=== PATIENT | male | born 1965 | race Caucasian/White ===

== ENCOUNTER 2019-07-29 17:43 | Inpatient (IN) | payer BC, OTHER ==
[~2019-07-29] VITALS: Ht 188 cm; Wt 104.4 kg
[~2019-07-29 17:43] MED LIST: ASPI81TA52 PO; ATOR40TA PO; NITR0.4T48 SL
[2019-07-29] MEDS ORDERED: metroNIDAZOLE-Flagyl 500mg/NS 100 ML IV STA (17:46)
[2019-07-29] MEDS ORDERED: ondansetron/PF 4mg/2ml inj IV ONE (17:50)
[2019-07-29] MEDS ORDERED: normal saline 1000ML IV soln IVB ONE (17:50)
[2019-07-29] MEDS: morphine 4 MG/ML inj SYRINge IV PRN ×3 (17:58→22:19)
[2019-07-29] MEDS: diatr meglu/diatrizoate 30ml oral sol.-(3 dose) bottle PO SCH (17:58)
[2019-07-29] MEDS ORDERED: IBUP-1986 PO (18:04)
[2019-07-29] MEDS ORDERED: TEST200V IJ (18:04)
[2019-07-29] MEDS ORDERED: fentaNYL/PF 50MCG/1 ML 2ML syringe ONE (18:09)
[2019-07-29 18:17] LABS: BASOPHILS % (AUTO) 0.3 % (0-1); EOSINOPHILS # (AUTO) 0.2 X10'3 (0-0.9); EOSINOPHILS % (AUTO) 1.3 % (0-6); HEMATOCRIT 51.2 % (42.0-52.0); HEMOGLOBIN 16.9 g/dl (14.0-17.9); LYMPHOCYTES # (AUTO) 0.8 X10'3 (1.1-4.8); LYMPHOCYTES % (AUTO) 5.4 % (21-51); MEAN CORPUSCULAR HEMOGLOBIN 32.8 PG (27.0-31.0); MEAN CORPUSCULAR HGB CONC 33.1 g/dL (33.0-36.5); MEAN CORPUSCULAR VOLUME 99.2 FL (78-98); MEAN PLATELET VOLUME 7.8 FL (7.4-10.4); MONOCYTES # (AUTO) 1.3 X10'3 (0-0.9); MONOCYTES % (AUTO) 9.2 % (2-12); NEUTROPHILS # (AUTO) 11.8 X10'3 (1.8-7.7); NEUTROPHILS % (AUTO) 83.8 % (42-75); PLATELET COUNT 202 X10'3 (140-440); RED BLOOD COUNT 5.16 X10'6 (4.70-6.10); RED CELL DISTRIBUTION WIDTH 14.1 % (11.5-14.5); WHITE BLOOD COUNT 14.1 X10'3 (4.5-11.0)
[2019-07-29 18:35] LABS: ALANINE AMINOTRANSFERASE 22 U/L (12-78); ALBUMIN 2.7 G/DL (3.4-5.0); ALKALINE PHOSPHATASE 49 IU/L (46-116); ANION GAP 3 (8-16); ASPARTATE AMINO TRANSFERASE 11 U/L (10-37); BILIRUBIN,TOTAL 0.4 MG/DL (0.1-1.0); BLOOD UREA NITROGEN 10 MG/DL (7-18); BUN/CREATININE RATIO 6.6 (5.4-32.0); CALCIUM 7.5 MG/DL (8.5-10.1); CHLORIDE 111 MMOL/L (99-107); CREATININE 1.52 MG/DL (0.60-1.10); GLUCOSE 168 MG/DL (70-104); POTASSIUM 3.6 MMOL/L (3.5-5.1); SODIUM 142 MMOL/L (135-145); TOTAL CARBON DIOXIDE 28.2 MMOL/L (24-32); TOTAL PROTEIN 5.3 G/DL (6.4-8.2); eGFR 48 ML/MIN
[2019-07-29 18:39] LABS: LIPASE 82 U/L (73-393); TROPONIN I < 0.04 NG/ML (0.0-0.05)
[2019-07-29 19:08] LABS: CLARITY,URINE CLEAR (Clear); COLOR,URINE YELLOW (Yellow); GLUCOSE, URINE NEGATIVE (Neg); KETONES,URINE NEGATIVE (Neg); LEUKOCYTE ESTERASE ,URINE NEGATIVE (Neg); NITRITES, URINE NEGATIVE (Neg); OCCULT BLOOD,URINE NEGATIVE (Neg); PH,URINE 5.5 (4.8-8.0); PROTEIN,URINE TRACE mg/dl (Neg); UROBILINOGEN,URINE 0.2 E.U/dL (0.2-1.0)
[2019-07-29 19:09] LABS: UA COLLECTION TYPE CLN CATCH MIDSTREAM
[2019-07-29 19:14] LABS: RBC,URINE 0-2 /HPF (0-2); WBC,URINE 0-4 /HPF (0-4)
[2019-07-29 19:15] LABS: BACTERIA,URINE NONE SEEN /HPF (Neg); SQUAMOUS EPITHELIAL CELL,UR FEW /LPF (FEW)
[2019-07-29] MEDS: ciprofloxacin lact 400MG/200ML 200 ML IV SCH (19:43)
[2019-07-29] MEDS: normal saline 1000ml 1,000 ML IV SCH (20:28)
[2019-07-29] MEDS ORDERED: magnesium Cl slow-release 64mg tablet PO PRN (20:30)
[2019-07-29] MEDS ORDERED: potassium Cl 20 mEq SR tablet PO PRN ×2 (20:30)
[2019-07-29] MEDS ORDERED: magnesium 2GM in 50ml NS 50 ML IV PRN (20:30)
[2019-07-29] MEDS ORDERED: magnesium 4gm in 100ml NS 100 ML IV PRN (20:30)
[2019-07-29] MEDS ORDERED: ondansetron/PF 4mg/2ml inj IV PRN (20:30)
[2019-07-29] MEDS ORDERED: potassium CL 10mEq/100ml bag 100 ML IV PRN (20:30)
--- NOTE | 2019-07-29 22:45 | NUR ---
Received report from Jimena Rae RN. patient to follow shortly.
[2019-07-29 22:50] VITALS: BP 163/88
--- NOTE | 2019-07-29 22:50 | NUR ---
Patient arrived to floor via gurney. Pt. A&Ox4, able to ambulate to bed. Nasal swab collected and 2 RN skin check completed. Pt. in no distress at this time.
[2019-07-30] MEDS: morphine 2 MG/ML inj. syringe IV PRN ×2 (01:53→05:36)
[2019-07-30] MEDS: ondansetron/PF 4mg/2ml inj IV PRN ×2 (03:02→07:54)
[2019-07-30] MEDS ORDERED: morphine 2 MG/ML inj. syringe IV ONE (04:15)
[2019-07-30 06:00] VITALS: BP 149/74
[2019-07-30 06:18] LABS: BASOPHILS # (AUTO) 0.1 X10'3 (0-0.2); BASOPHILS % (AUTO) 0.4 % (0-1); EOSINOPHILS # (AUTO) 0.1 X10'3 (0-0.9); HEMATOCRIT 50.3 % (42.0-52.0); HEMOGLOBIN 16.8 g/dl (14.0-17.9); LYMPHOCYTES # (AUTO) 0.6 X10'3 (1.1-4.8); LYMPHOCYTES % (AUTO) 5.5 % (21-51); MEAN CORPUSCULAR HEMOGLOBIN 32.6 PG (27.0-31.0); MEAN CORPUSCULAR HGB CONC 33.4 g/dL (33.0-36.5); MEAN CORPUSCULAR VOLUME 97.7 FL (78-98); MEAN PLATELET VOLUME 7.8 FL (7.4-10.4); MONOCYTES # (AUTO) 1.1 X10'3 (0-0.9); MONOCYTES % (AUTO) 9.6 % (2-12); NEUTROPHILS # (AUTO) 9.7 X10'3 (1.8-7.7); NEUTROPHILS % (AUTO) 83.5 % (42-75); PLATELET COUNT 202 X10'3 (140-440); RED BLOOD COUNT 5.15 X10'6 (4.70-6.10); RED CELL DISTRIBUTION WIDTH 13.7 % (11.5-14.5); WHITE BLOOD COUNT 11.6 X10'3 (4.5-11.0)
[2019-07-30 06:24] LABS: ALBUMIN 2.9 G/DL (3.4-5.0); ANION GAP 9 (8-16); BLOOD UREA NITROGEN 11 MG/DL (7-18); BUN/CREATININE RATIO 7.5 (5.4-32.0); CALCIUM 7.9 MG/DL (8.5-10.1); CHLORIDE 109 MMOL/L (99-107); CREATININE 1.46 MG/DL (0.60-1.10); GLUCOSE 130 MG/DL (70-104); MAGNESIUM 1.6 MG/DL (1.5-2.4); POTASSIUM 3.8 MMOL/L (3.5-5.1); SODIUM 142 MMOL/L (135-145); eGFR 50 ML/MIN
[2019-07-30] MEDS: normal saline 1000ml 1,000 ML IV SCH ×3 (06:28→22:43)
--- NOTE | 2019-07-30 06:45 | NUR ---
Problems reprioritized. Patient report given, questions answered & plan of care reviewed with Meagan LEACH.
--- NOTE | 2019-07-30 06:49 | NUR ---
Patient in room ORTHO 4013. I have received report from HAYLEE Doe and had the opportunity to ask questions and assume patient care.
[2019-07-30] MEDS: ciprofloxacin lact 400MG/200ML 200 ML IV SCH ×2 (07:54→20:42)
[2019-07-30] MEDS: diatr meglu/diatrizoate 30ml oral sol.-(3 dose) bottle PO SCH ×2 (07:54→10:42)
[2019-07-30] MEDS ORDERED: piperacillin/tazo 3.375gm/50ml 50 ML IV SCH (08:00)
[2019-07-30] MEDS: K and/or MAG REPLACEMENT MC SCH ×2 (08:00→20:00)
[2019-07-30 10:00] VITALS: BP 162/92
[2019-07-30] MEDS: HYDROmorphone 1 mg/ml syringe IV PRN ×2 (10:11→14:02)
[2019-07-30] MEDS: metroNIDAZOLE-Flagyl 500mg/NS 100 ML IV SCH ×2 (10:24→16:24)
[2019-07-30] MEDS ORDERED: iohexol 300mg/ml 100ml inj. ONE (10:33)
--- NOTE | 2019-07-30 10:45 | NUR ---
PT TRANSPORTED TO CT VIA WHEELCHAIR
--- NOTE | 2019-07-30 11:04 | NUR ---
PT RETURNED FROM CT.
[2019-07-30 18:00] VITALS: BP 144/67
--- NOTE | 2019-07-30 18:27 | NUR ---
Problems reprioritized. Patient report given, questions answered & plan of care reviewed with HAYLEE Correa.
--- NOTE | 2019-07-30 18:30 | NUR ---
notified that pt has HR in 160's. tele reports ST. pt was laying in bed, felt his heart racing, but no chest pain or SOB. "It has happened before. not often." ST lasted for approx 2 minutes.
--- NOTE | 2019-07-30 20:00 | NUR ---
Dr. Gamboa saw patient. ok for CL diet for trial (reds ok) if pt has severe pain again - stop eating and call [facility]. states that pt has some spiral-twists in bowel that will hopefully clear itself. diet is ordered
--- NOTE | 2019-07-30 21:02 | NUR ---
paged Dr. Sanchez. lee [phone]. pt [facility] given ok from [facility] for CL trial diet. wants Excedrin for neck ache. it's what he takes at home. doesn't want dilaudid that is ordered.
[2019-07-30 22:00] VITALS: BP 124/67
[2019-07-30] MEDS ORDERED: aspirin/acetaminophen/caffeine tablet PO ONE (22:10)
[2019-07-30] MEDS ORDERED: pantoprazole 40 MG vial IV ONE (22:20)
[2019-07-31] VITALS (17 sets, daily range): BP systolic 122–151; BP diastolic 57–87
[2019-07-31] MEDS: metroNIDAZOLE-Flagyl 500mg/NS 100 ML IV SCH ×3 (00:40→19:32)
[2019-07-31] MEDS: HYDROmorphone 1 mg/ml syringe IV PRN (04:39)
--- NOTE | 2019-07-31 04:45 | NUR ---
pt ambulated in hallway. noted increased bloating from CL diet. stopped drinking and pain medication given. encouraged pt to walk more if possible. verbalized understanding.
[2019-07-31 06:07] LABS: BASOPHILS % (AUTO) 0.6 % (0-1); EOSINOPHILS # (AUTO) 0.6 X10'3 (0-0.9); EOSINOPHILS % (AUTO) 7.7 % (0-6); HEMATOCRIT 48.6 % (42.0-52.0); MEAN CORPUSCULAR HEMOGLOBIN 32.8 PG (27.0-31.0); MEAN CORPUSCULAR HGB CONC 32.9 g/dL (33.0-36.5); MEAN CORPUSCULAR VOLUME 99.6 FL (78-98); MEAN PLATELET VOLUME 7.7 FL (7.4-10.4); MONOCYTES % (AUTO) 13.3 % (2-12); NEUTROPHILS # (AUTO) 4.9 X10'3 (1.8-7.7); NEUTROPHILS % (AUTO) 65.4 % (42-75); PLATELET COUNT 186 X10'3 (140-440); RED BLOOD COUNT 4.88 X10'6 (4.70-6.10); RED CELL DISTRIBUTION WIDTH 13.9 % (11.5-14.5); WHITE BLOOD COUNT 7.5 X10'3 (4.5-11.0)
[2019-07-31 06:14] LABS: ALBUMIN 2.7 G/DL (3.4-5.0); ANION GAP 8 (8-16); BLOOD UREA NITROGEN 11 MG/DL (7-18); BUN/CREATININE RATIO 7.7 (5.4-32.0); CALCIUM 7.6 MG/DL (8.5-10.1); CHLORIDE 108 MMOL/L (99-107); CREATININE 1.42 MG/DL (0.60-1.10); GLUCOSE 103 MG/DL (70-104); MAGNESIUM 1.7 MG/DL (1.5-2.4); POTASSIUM 3.4 MMOL/L (3.5-5.1); SODIUM 141 MMOL/L (135-145); TOTAL CARBON DIOXIDE 25.3 MMOL/L (24-32); eGFR 52 ML/MIN
--- NOTE | 2019-07-31 06:39 | NUR ---
Dr. Reese to see pt. order for NPO and abd xray series
--- NOTE | 2019-07-31 06:57 | NUR ---
Patient in room ORTHO 4013. I have received report from Sunny LEACH and had the opportunity to ask questions and assume patient care.
[2019-07-31] MEDS: K and/or MAG REPLACEMENT MC SCH ×2 (08:00→20:00)
[2019-07-31] MEDS: heparin, porcine 5000 units/ml vial SQ SCH ×2 (08:43→21:15)
[2019-07-31] MEDS: pantoprazole 40 MG vial IV SCH (08:43)
[2019-07-31] MEDS: ciprofloxacin lact 400MG/200ML 200 ML IV SCH ×2 (11:17→21:15)
[2019-07-31] MEDS ORDERED: ringers solution, lacted 1,000 ML IV ONE (12:08)
[2019-07-31] MEDS: normal saline 1000ml 1,000 ML IV SCH ×2 (13:01→22:28)
[2019-07-31] MEDS: potassium CL 10mEq/100ml bag 100 ML IV PRN (13:01)
--- NOTE | 2019-07-31 13:52 | NUR ---
Problems reprioritized. Patient report given, questions answered & plan of care reviewed with Ashok in recovery.
[2019-07-31] MEDS ORDERED: ceFAZolin 1000mg inj ONE (14:09)
[2019-07-31] MEDS ORDERED: BUPIVAcaine/PF 2.5 mg/ml (0.25%) 30ml vial ONE (14:09)
[2019-07-31] MEDS ORDERED: fentaNYL/PF 50MCG/1 ML 2ML syringe IV PRN ×2 (14:45)
[2019-07-31] MEDS ORDERED: labetalol 20mg/4ml (5mg/ml) syringe IV PRN (14:45)
[2019-07-31] MEDS ORDERED: ringers solution, lacted 1,000 ML IV SCH (14:45)
[2019-07-31] MEDS ORDERED: morphine 4 MG/ML inj SYRINge IV PRN (14:45)
[2019-07-31] MEDS ORDERED: ondansetron/PF 4mg/2ml inj IV PRN (14:45)
[2019-07-31] MEDS ORDERED: morphine 2 MG/ML inj. syringe IV PRN (14:45)
[2019-07-31] MEDS ORDERED: hydrALAZINE 20mg/ml inj. IV PRN (14:45)
[2019-07-31] MEDS ORDERED: propofol inj 20 ML IV ONE (14:50)
[2019-07-31] MEDS ORDERED: ondansetron/PF 4mg/2ml inj ONE (14:50)
[2019-07-31] MEDS ORDERED: rocuronium 10mg/ml inj IV ONE (14:50)
[2019-07-31] MEDS ORDERED: LIDOcaine 2% (20mg/ml) 5ml vial ONE (14:50)
[2019-07-31] MEDS ORDERED: midazolam 2 mg/2 ml injection ONE (14:51)
[2019-07-31] MEDS ORDERED: fentaNYL/PF 50MCG/1 ML 2ML syringe ONE ×2 (14:51→15:21)
[2019-07-31] MEDS ORDERED: glycopyrrolate 0.2mg/ml inj ONE (14:52)
[2019-07-31] MEDS ORDERED: potassium Cl 2 mEq/ml inj IV ONE (14:52)
[2019-07-31] MEDS ORDERED: labetalol 20mg/4ml (5mg/ml) syringe IV ONE (14:52)
[2019-07-31] MEDS ORDERED: neostigmine methylsulfate 1 MG/ML 10ml vial ONE (14:52)
[2019-07-31] MEDS ORDERED: sevoflurane 250ml liquid IH ONE (14:52)
[2019-07-31] MEDS ORDERED: dexamethasone sod phosphate 4mg/ml inj. ONE (14:58)
[2019-07-31] MEDS ORDERED: ceFOXitin 1000 MG inj ONE ×3 (15:02)
[2019-07-31] MEDS ORDERED: BUPIVAcaine/PF 2.5mg/ml (0.25%) 10ml vial ONE (15:53)
[2019-07-31] MEDS ORDERED: BUPIVACAINE liposomal/PF 13.3 MG/ML vial IM ONE (15:53)
--- NOTE | 2019-07-31 16:28 | NUR ---
Received from OR via ORTHO BED WITH [facility] , accompanied by Anesthesiologist ELPIDIO and report given by Anesthesiolgist. PATIENT DENIES PAIN. 5 ABDOMINAL BANDAIDS PRESENT THAT ARE CDI. 10L MASK ON WITH 99% SATURATIONS. SCDS DONNED UPON ARRIVAL. 20G PIV IN RIGHT UE RUNNING LR AT 100. VSS, DENIES PAIN UPON QUESTIONING. Addendum: 07/31/19 at 1639 by Ashok Kimball RN, RN Amended: Links added.
[2019-07-31] MEDS ORDERED: CADD PCA waste documentation MC PRN (16:55)
[2019-07-31] MEDS ORDERED: naloxone 0.4 mg/ml inj IV PRN (16:55)
--- NOTE | 2019-07-31 17:08 | NUR ---
Report called to receiving nurse. Transferred via ORTHO BED WITH [facility] Belongings . Special Issues communicated to receiving nurse SAIRA LEACH. Addendum: 07/31/19 at 1733 by Ashok Kimball RN, RN Amended: Links added.
--- NOTE | 2019-07-31 17:08 | NUR ---
Report called to receiving nurse. Transferred via ORTHO BED WITH [facility] WITH NO Belongings. Special Issues communicated to receiving nurse SAIRA LEACH. PATIENT WITH NO C.O. PAIN. Addendum: 07/31/19 at 1726 by Ashok Kimball RN, RN Amended: Links added.
[2019-07-31] MEDS: HYDROmorphone/NS 1 mg/ml CADD 50 ML IV SCH ×4 (17:58→23:00)
--- NOTE | 2019-07-31 18:30 | NUR ---
Patient report given to Kitty LEACH
[2019-08-01] MEDS: metroNIDAZOLE-Flagyl 500mg/NS 100 ML IV SCH ×2 (00:15→08:59)
[2019-08-01] MEDS: potassium CL 10mEq/100ml bag 100 ML IV PRN ×3 (00:16→02:50)
[2019-08-01] MEDS: HYDROmorphone/NS 1 mg/ml CADD 50 ML IV SCH ×12 (01:00→23:00)
[2019-08-01 06:00] VITALS: BP 111/64
--- NOTE | 2019-08-01 06:10 | NUR ---
Problems reprioritized. Patient report given, questions answered & plan of care reviewed with Walter LEACH.
--- NOTE | 2019-08-01 06:15 | NUR ---
Patient in room ORTHO 4013. I have received report from HAYLEE Tang and had the opportunity to ask questions and assume patient care.
[2019-08-01 06:16] LABS: BASOPHILS % (AUTO) 0.2 % (0-1); EOSINOPHILS % (AUTO) 0.3 % (0-6); HEMATOCRIT 47.3 % (42.0-52.0); HEMOGLOBIN 15.8 g/dl (14.0-17.9); LYMPHOCYTES # (AUTO) 0.6 X10'3 (1.1-4.8); LYMPHOCYTES % (AUTO) 6.9 % (21-51); MEAN CORPUSCULAR HEMOGLOBIN 32.9 PG (27.0-31.0); MEAN CORPUSCULAR HGB CONC 33.4 g/dL (33.0-36.5); MEAN CORPUSCULAR VOLUME 98.6 FL (78-98); MEAN PLATELET VOLUME 7.7 FL (7.4-10.4); MONOCYTES % (AUTO) 10.8 % (2-12); NEUTROPHILS # (AUTO) 7.3 X10'3 (1.8-7.7); NEUTROPHILS % (AUTO) 81.8 % (42-75); PLATELET COUNT 218 X10'3 (140-440); RED CELL DISTRIBUTION WIDTH 13.7 % (11.5-14.5); WHITE BLOOD COUNT 8.9 X10'3 (4.5-11.0)
[2019-08-01 06:20] LABS: ALBUMIN 2.7 G/DL (3.4-5.0); ANION GAP 7 (8-16); BLOOD UREA NITROGEN 10 MG/DL (7-18); BUN/CREATININE RATIO 6.8 (5.4-32.0); CALCIUM 7.3 MG/DL (8.5-10.1); CHLORIDE 107 MMOL/L (99-107); CREATININE 1.48 MG/DL (0.60-1.10); GLUCOSE 127 MG/DL (70-104); MAGNESIUM 1.7 MG/DL (1.5-2.4); POTASSIUM 3.8 MMOL/L (3.5-5.1); SODIUM 140 MMOL/L (135-145); TOTAL CARBON DIOXIDE 26.4 MMOL/L (24-32); eGFR 49 ML/MIN
[2019-08-01] MEDS: K and/or MAG REPLACEMENT MC SCH ×2 (07:06→20:00)
--- NOTE | 2019-08-01 07:36 | NUR ---
PAGER ID: [phone] MESSAGE: [id number] Mark Anthony Piper: Had two minute run of Vtac (per telemetry nurse). Patient said he felt it but feels normal now. Vitals BP 132/88, P 62, O2 at 98 on RA. HAYLEE Watson Ext [phone]
[2019-08-01] MEDS: pantoprazole 40 MG vial IV SCH (08:36)
[2019-08-01] MEDS: heparin, porcine 5000 units/ml vial SQ SCH ×2 (08:41→19:42)
[2019-08-01] MEDS: ciprofloxacin lact 400MG/200ML 200 ML IV SCH ×2 (08:44→19:43)
[2019-08-01] MEDS: normal saline 1000ml 1,000 ML IV SCH ×2 (08:59→20:52)
[2019-08-01 10:00] VITALS: BP 132/72
[2019-08-01] MEDS: metroNIDAZOLE 500mg tablet PO SCH ×2 (16:08→23:57)
[2019-08-01 18:00] VITALS: BP 142/80
--- NOTE | 2019-08-01 18:20 | NUR ---
Patient in room ORTHO 4013. I have received report from Walter LEACH and had the opportunity to ask questions and assume patient care.
--- NOTE | 2019-08-01 18:26 | NUR ---
Problems reprioritized. Patient report given, questions answered & plan of care reviewed with HAYLEE Blackmon.
[2019-08-01] MEDS: lactobacillus rhamnosus 10,000 MMU CELLS/CAPSULE PO SCH (19:41)
[2019-08-01 22:00] VITALS: BP 136/81
[2019-08-02] MEDS: HYDROmorphone/NS 1 mg/ml CADD 50 ML IV SCH ×7 (01:00→13:00)
[2019-08-02] MEDS: normal saline 1000ml 1,000 ML IV SCH (03:27)
[2019-08-02 06:00] VITALS: BP 142/73
--- NOTE | 2019-08-02 06:00 | NUR ---
Patient in room ORTHO 4013. I have received report from Lorri LEACH and had the opportunity to ask questions and assume patient care.
[2019-08-02 06:01] LABS: ALBUMIN 2.8 G/DL (3.4-5.0); ANION GAP 6 (8-16); BLOOD UREA NITROGEN 9 MG/DL (7-18); BUN/CREATININE RATIO 6.4 (5.4-32.0); CALCIUM 7.7 MG/DL (8.5-10.1); CHLORIDE 109 MMOL/L (99-107); CREATININE 1.41 MG/DL (0.60-1.10); GLUCOSE 99 MG/DL (70-104); MAGNESIUM 1.9 MG/DL (1.5-2.4); POTASSIUM 3.7 MMOL/L (3.5-5.1); SODIUM 141 MMOL/L (135-145); TOTAL CARBON DIOXIDE 25.6 MMOL/L (24-32); eGFR 52 ML/MIN
[2019-08-02 06:07] LABS: BASOPHILS # (AUTO) 0.1 X10'3 (0-0.2); BASOPHILS % (AUTO) 0.6 % (0-1); EOSINOPHILS # (AUTO) 0.4 X10'3 (0-0.9); EOSINOPHILS % (AUTO) 4.6 % (0-6); HEMATOCRIT 46.3 % (42.0-52.0); HEMOGLOBIN 15.5 g/dl (14.0-17.9); LYMPHOCYTES # (AUTO) 0.8 X10'3 (1.1-4.8); MEAN CORPUSCULAR HGB CONC 33.5 g/dL (33.0-36.5); MEAN CORPUSCULAR VOLUME 98.5 FL (78-98); MEAN PLATELET VOLUME 7.8 FL (7.4-10.4); MONOCYTES % (AUTO) 10.5 % (2-12); NEUTROPHILS # (AUTO) 7.4 X10'3 (1.8-7.7); NEUTROPHILS % (AUTO) 76.3 % (42-75); PLATELET COUNT 217 X10'3 (140-440); RED CELL DISTRIBUTION WIDTH 13.5 % (11.5-14.5); WHITE BLOOD COUNT 9.7 X10'3 (4.5-11.0)
--- NOTE | 2019-08-02 06:22 | NUR ---
Problems reprioritized. Patient report given, questions answered & plan of care reviewed with Karmen LEACH.
[2019-08-02] MEDS: metroNIDAZOLE 500mg tablet PO SCH (07:15)
[2019-08-02] MEDS: lactobacillus rhamnosus 10,000 MMU CELLS/CAPSULE PO SCH (07:15)
[2019-08-02] MEDS: heparin, porcine 5000 units/ml vial SQ SCH (07:15)
[2019-08-02] MEDS: ciprofloxacin lact 400MG/200ML 200 ML IV SCH (07:15)
[2019-08-02] MEDS ORDERED: pantoprazole 40mg Tablet.DR PO SCH (07:30)
[2019-08-02] MEDS: K and/or MAG REPLACEMENT MC SCH (08:00)
[2019-08-02 10:00] VITALS: BP 136/77
--- NOTE | 2019-08-02 15:39 | NUR ---
Patient stable for discharge home today. All belongings sent with patient. IV's discontinued and cannula intact.
== END 2019-08-02 15:10 | disposition home or self-care (01) | DRG 337 ==
LOC: ER 17:43 → ED HOLD 20:28 → ORTHO 4S 22:48
PROVIDERS: ADMIT Internal Medicine; ATTEND Family Medicine
PROC: 0DN84ZZ Release Small Intestine, Percutaneous Endoscopic Approach (ICD-10-PCS; principal; 2019-07-31 14:52)
DX: K56.50 Intestinal adhesions [bands], unspecified as to partial versus complete obstruction (principal); I25.10 Atherosclerotic heart disease of native coronary artery without angina pectoris
CPT/HCPCS: 96365; 96366; 96375; 99285; Z7506; Z7508; 36415; 71045; 74022; 74177; 80048; 80053; 81001; 82948; 83605; 83690; 83735; 84484; 85025; 85610; 87081; 93005; A4215; A4314; A4618; A7000; C9113; C9290; G0378; J0690; J0694; J0744; J1100; J1170; J1644; J2001; J2250; J2270; J2405; J2704; J2710; J3010; J3480; J3490; J7030; J7120; Q9963; Q9967

== ENCOUNTER 2019-08-07 00:20 | Inpatient (IN) | payer BC ==
[~2019-08-07] VITALS: Ht 188 cm; Wt 100.0 kg
[~2019-08-07 00:20] MED LIST changes: -ASPI81TA52 PO; -ATOR40TA PO; +IBUP-1986 PO; -NITR0.4T48 SL; +TEST200V IJ
[2019-08-07] MEDS ORDERED: ondansetron/PF 4mg/2ml inj IV ONE (00:25)
[2019-08-07] MEDS ORDERED: normal saline 1000ML IV soln IVB ONE (00:25)
[2019-08-07] MEDS: morphine 4 MG/ML inj SYRINge IV PRN ×3 (00:56→02:11)
[2019-08-07 01:06] LABS: BASOPHILS # (AUTO) 0.1 X10'3 (0-0.2); BASOPHILS % (AUTO) 0.8 % (0-1); EOSINOPHILS # (AUTO) 0.3 X10'3 (0-0.9); EOSINOPHILS % (AUTO) 2.2 % (0-6); HEMATOCRIT 56.9 % (42.0-52.0); LYMPHOCYTES # (AUTO) 1.2 X10'3 (1.1-4.8); LYMPHOCYTES % (AUTO) 8.9 % (21-51); MEAN CORPUSCULAR HEMOGLOBIN 32.6 PG (27.0-31.0); MEAN CORPUSCULAR HGB CONC 33.1 g/dL (33.0-36.5); MEAN CORPUSCULAR VOLUME 98.6 FL (78-98); MONOCYTES # (AUTO) 1.4 X10'3 (0-0.9); MONOCYTES % (AUTO) 10.6 % (2-12); NEUTROPHILS # (AUTO) 10.4 X10'3 (1.8-7.7); NEUTROPHILS % (AUTO) 77.5 % (42-75); PLATELET COUNT 292 X10'3 (140-440); RED BLOOD COUNT 5.77 X10'6 (4.70-6.10); RED CELL DISTRIBUTION WIDTH 14.2 % (11.5-14.5); WHITE BLOOD COUNT 13.5 X10'3 (4.5-11.0)
[2019-08-07 01:10] LABS: HEMOGLOBIN 18.8 g/dl (14.0-17.9)
[2019-08-07 01:17] LABS: CLARITY,URINE CLEAR (Clear); COLOR,URINE YELLOW (Yellow); GLUCOSE, URINE NEGATIVE (Neg); KETONES,URINE NEGATIVE (Neg); LEUKOCYTE ESTERASE ,URINE NEGATIVE (Neg); NITRITES, URINE NEGATIVE (Neg); OCCULT BLOOD,URINE NEGATIVE (Neg); PROTEIN,URINE NEGATIVE (Neg); UROBILINOGEN,URINE 0.2 E.U/dL (0.2-1.0)
[2019-08-07 01:18] LABS: UA COLLECTION TYPE VOIDED
[2019-08-07 01:33] LABS: ALANINE AMINOTRANSFERASE 100 U/L (12-78); ALBUMIN 3.9 G/DL (3.4-5.0); ALBUMIN/GLOBULIN RATIO 1.1 (1.1-1.5); ALKALINE PHOSPHATASE 82 IU/L (46-116); ANION GAP 9 (8-16); ASPARTATE AMINO TRANSFERASE 22 U/L (10-37); BILIRUBIN,TOTAL 0.7 MG/DL (0.1-1.0); BLOOD UREA NITROGEN 15 MG/DL (7-18); BUN/CREATININE RATIO 8.3 (5.4-32.0); CHLORIDE 102 MMOL/L (99-107); CREATININE 1.81 MG/DL (0.60-1.10); GLUCOSE 97 MG/DL (70-104); LIPASE 844 U/L (73-393); POTASSIUM 3.8 MMOL/L (3.5-5.1); SODIUM 140 MMOL/L (135-145); TOTAL CARBON DIOXIDE 28.6 MMOL/L (24-32); TOTAL PROTEIN 7.5 G/DL (6.4-8.2); eGFR 39 ML/MIN
[2019-08-07] MEDS ORDERED: fentaNYL/PF 50MCG/1 ML 2ML syringe IV ONE (01:55)
[2019-08-07] MEDS ORDERED: LIDOcaine 2% 10ml TOPICAL JELLY (Urojet) MM STA (01:59)
[2019-08-07] MEDS ORDERED: LIDOcaine 2% 10ml TOPICAL JELLY (Urojet) MM ONE (02:00)
[2019-08-07] MEDS ORDERED: ondansetron/PF 4mg/2ml inj IV PRN (02:25)
[2019-08-07] MEDS ORDERED: HYDROmorphone inj. 0.5 MG/0.5 ML DISP.SYRIN IV PRN (02:25)
[2019-08-07] MEDS ORDERED: levoFLOXACIN-Levaquin 500mg/D5 100 ML IV ONE (02:30)
[2019-08-07] MEDS: HYDROmorphone 1 mg/ml syringe IV PRN ×2 (03:18→05:52)
[2019-08-07] MEDS: normal saline 1000ml 1,000 ML IV SCH ×4 (03:20→23:22)
[2019-08-07 03:24] VITALS: BP 127/79
--- NOTE | 2019-08-07 06:30 | NUR ---
Patient in room [facility] 360. I have received report from HAYLEE Kidd and had the opportunity to ask questions and assume patient care.
[2019-08-07 07:00] VITALS: BP 114/65
[2019-08-07 11:00] VITALS: BP 121/79
--- NOTE | 2019-08-07 12:39 | NUR ---
Malnutrition consult: Pt reports 2-13 lb wt loss with decreased appetite per malnutrition risk screen with RN. Pt recently admitted with scaled wt of 104.355 kg taken 07/30 with a standing scale, current documented wt is 100 kg however is not scaled. Pt NPO on admit with NG tube in place however diet has just been advanced to clear liquids, pending first meal since advancement. Pt documented with 100% PO intake on liquid diet at last admit 07/31-08/01. Pt with no documented decrease in muscle strength or edema. No noted visible fat or muscle wasting. Per H&P pt reports pain and nausea the day of admit that resulted in vomiting. Pt may have experienced some wt loss however currently lacks a minimum of two criteria for malnutrition. Will continue to follow. Addendum: 08/07/19 at [address] Amended: Links added.
--- NOTE | 2019-08-07 18:07 | NUR ---
Problems reprioritized. Patient report given, questions answered & plan of care reviewed with HAYLEE Lutz.
[2019-08-07 18:30] VITALS: BP 121/69
--- NOTE | 2019-08-07 18:53 | NUR ---
Patient in room [facility] 360. I have received report from HAYLEE Goodwin and had the opportunity to ask questions and assume patient care.
--- NOTE | 2019-08-07 20:00 | NUR ---
Pt states his spouse was treated Rudely in front entrance. She drover over an hour to get here and arrived around 0 visiting hours over at 1900 and she is not allowed to visit. Customer Care Assistant states strictly no visitors after 190, lead burner supervisor called waiting for call back. Spouse did not want to wait any longer so I met spouse in entrance to curing pickling packer pt belongings.
[2019-08-07] MEDS ORDERED: diatr meglu/diatrizoate 30ml oral sol.-(3 dose) bottle PO SCH (21:00)
[2019-08-07] MEDS: diatr meglu/diatrizoate 30ml oral sol.-(3 dose) bottle PO SCH (21:16)
[2019-08-07] MEDS ORDERED: mag hydrox/Alum hydrox/simeth 30ml oral suspension PO ONE (22:20)
[2019-08-08 00:15] VITALS: BP 111/67
[2019-08-08] MEDS: normal saline 1000ml 1,000 ML IV SCH ×2 (04:31→11:42)
[2019-08-08 05:26] LABS: BASOPHILS % (AUTO) 0.7 % (0-1); EOSINOPHILS # (AUTO) 0.3 X10'3 (0-0.9); EOSINOPHILS % (AUTO) 5.8 % (0-6); HEMATOCRIT 47.3 % (42.0-52.0); HEMOGLOBIN 15.9 g/dl (14.0-17.9); LYMPHOCYTES # (AUTO) 1.1 X10'3 (1.1-4.8); LYMPHOCYTES % (AUTO) 19.6 % (21-51); MEAN CORPUSCULAR HGB CONC 33.6 g/dL (33.0-36.5); MEAN CORPUSCULAR VOLUME 98.2 FL (78-98); MEAN PLATELET VOLUME 8.1 FL (7.4-10.4); MONOCYTES # (AUTO) 0.9 X10'3 (0-0.9); MONOCYTES % (AUTO) 16.1 % (2-12); NEUTROPHILS # (AUTO) 3.2 X10'3 (1.8-7.7); NEUTROPHILS % (AUTO) 57.8 % (42-75); PLATELET COUNT 221 X10'3 (140-440); RED BLOOD COUNT 4.82 X10'6 (4.70-6.10); RED CELL DISTRIBUTION WIDTH 13.6 % (11.5-14.5); WHITE BLOOD COUNT 5.6 X10'3 (4.5-11.0)
[2019-08-08 05:38] LABS: ALANINE AMINOTRANSFERASE 60 U/L (12-78); ALBUMIN/GLOBULIN RATIO 1.1 (1.1-1.5); ALKALINE PHOSPHATASE 54 IU/L (46-116); ANION GAP 6 (8-16); ASPARTATE AMINO TRANSFERASE 14 U/L (10-37); BILIRUBIN,TOTAL 0.9 MG/DL (0.1-1.0); BLOOD UREA NITROGEN 10 MG/DL (7-18); BUN/CREATININE RATIO 7.2 (5.4-32.0); CHLORIDE 108 MMOL/L (99-107); CREATININE 1.39 MG/DL (0.60-1.10); GLUCOSE 104 MG/DL (70-104); LIPASE 377 U/L (73-393); POTASSIUM 4.2 MMOL/L (3.5-5.1); SODIUM 140 MMOL/L (135-145); TOTAL CARBON DIOXIDE 25.6 MMOL/L (24-32); TOTAL PROTEIN 5.7 G/DL (6.4-8.2); eGFR 53 ML/MIN
--- NOTE | 2019-08-08 06:42 | NUR ---
Problems reprioritized. Patient report given, questions answered & plan of care reviewed with HAYLEE Gross.
[2019-08-08 07:29] VITALS: BP 114/51
[2019-08-08] MEDS: diatr meglu/diatrizoate 30ml oral sol.-(3 dose) bottle PO SCH ×2 (07:42→09:11)
[2019-08-08] MEDS ORDERED: levoFLOXACIN-Levaquin 500mg/D5 100 ML IV SCH (08:00)
--- NOTE | 2019-08-08 10:37 | NUR ---
MESSAGE: Renato Surg [phone] Re: [id number] Mark Anthony Piper has been resulted at this time. Thanks Renato. sent to hospitalist at this time time
[2019-08-08 11:00] VITALS: BP 135/72
--- NOTE | 2019-08-08 11:55 | NUR ---
PAGER ID: [phone] MESSAGE: Renato Surg [phone] RE: 360b Mark Anthony Piper Patient CT back and Ultrasound are resulted, Dr. Reese discharged patient. Thanks Renato. Message sent to Hospitalist at this time.
--- NOTE | 2019-08-08 12:37 | NUR ---
Student documentation: I have reviewed and agree with all interventions, assessments performed and documented by Nick, acute care nursing assistant.
--- NOTE | 2019-08-08 12:38 | NUR ---
Student documentation: I have reviewed and agree with all interventions, assessments performed and documented by Nick, instructor of nursing.
--- NOTE | 2019-08-08 13:10 | NUR ---
Patient discharge was verbally done with patient, Patient did not get any new medications added to his regime. Patient was educated on his diet and how to advance. Patient was encouraged to return to ER if symptoms comes Back. Patient IV taken out a discharge canula whole upon removal and inspection. Patient taken out to vehicle via student walking with patient.
== END 2019-08-08 13:07 | disposition home or self-care (01) | DRG 389 ==
LOC: ER 00:21 → UNDOADMIN 02:22 → ED HOLD 02:22 → SUR 3N 02:56 → ED HOLD 02:56
PROVIDERS: ADMIT Internal Medicine; ATTEND Family Medicine
PROC: 0D9670Z Drainage of Stomach with Drainage Device, Via Natural or Artificial Opening (ICD-10-PCS; principal; 2019-08-07)
DX: K56.600 Partial intestinal obstruction, unspecified as to cause (principal); N17.9 Acute kidney failure, unspecified; D72.829 Elevated white blood cell count, unspecified; I25.10 Atherosclerotic heart disease of native coronary artery without angina pectoris; Z82.49 Family history of ischemic heart disease and other diseases of the circulatory system; Z79.899 Other long term (current) drug therapy
CPT/HCPCS: 36415; 74176; 80053; 81003; 83605; 83690; 85025; 87081; 93975; 96361; 96374; 96375; 99285; G0378; J1170; J1956; J2270; J2405; J3010; J7030; Q9963